=== PATIENT | male | born 1985 | race American Indian/Alaskan Native ===

== ENCOUNTER 2017-04-19 20:21 | Emergency (ER) | payer SELFPAY ==
[2017-04-19] MEDS ORDERED: DUONEB *Not for PRN Use IH ONE ×2 (20:42→20:55)
[2017-04-19] MEDS ORDERED: ATROVENT IH ONE ×2 (21:02→21:03)
[2017-04-19] MEDS ORDERED: PROVENTIL IH ONE ×2 (21:02)
--- NOTE | 2017-04-19 21:39 | XRay Report ---
FINAL REPORT PROCEDURE: XR CHEST ROUTINE 2V TECHNIQUE: PA and lateral chest radiographs were obtained. CPT 12875 HISTORY: sob wheezing COMPARISON: No prior studies are available for comparison. FINDINGS: Heart: Normal. Mediastinum/Vessels: Normal. Lungs/Pleural space: Lungs are clear and expanded. There are no infiltrates, effusions or pneumothoraces.. Bony thorax: No acute osseous abnormality. Other: IMPRESSION: Normal examination.
--- NOTE | 2017-04-19 21:49 | Emergency Department Report ---
ED Asthma HPI - General Chief Complaint: Adult Asthma Stated Complaint: JEMMA Time Seen by Provider: 04/19/17 21:22 Source: patient Mode of arrival: Ambulatory Limitations: No Limitations - History of Present Illness Initial Comments: This is a 32-year-old male nontoxic, well nourished in appearance, no acute signs of distress appears to the ED complaining of wheezing and "asthma attack" that occurred this morning around 0400. Patient stated when he woke up but his teeth he develop difficult to breathing and stated he took albuterol treatment at home with minimal relief. Patient denies any sick contact. Denies long car rides, which travels, or recent hospitalization. Patient denies any calf tenderness, calf pain, or calf swelling. Patient stated has been diagnosed with asthma since childhood and has been smoking cigarettes since the age of 17 and is currently smoking cigarettes about one pack every two days. Patient is complaining of wheezing. Patient denies any fever, hemoptysis, chills, stiff neck, headache, nausea, vomiting, chest pain or short of breath. Patient stated has these asthma attacks once yearly. Denies having a primary care doctor or follow-up for his asthma. Patient denies any allergies and past medical history besides asthma. MD Complaint: "asthma attack", shortness of breath, wheezing -: Gradual, This morning Asthma History: childhood onset Severity: moderate Context: none known Associated Symptoms: none. denies: productive cough, dry cough, fever, chest pain, hemoptysis, leg edema, syncope Treatments Prior to Arrival: inhaled bronchodilator - Related Data Current Asthma Therapy: none Previous Rx's Medication Instructions Recorded Last Taken Type ALBUTEROL Inhaler [ProAir HFA 2 puff IH QID PRN #1 inhalation 04/19/17 Unknown Rx Inhaler] Amoxicillin/K Clav Tab [Augmentin 1 tab PO Q12HR #20 tab 04/19/17 Unknown Rx 875 mg] predniSONE [Deltasone] 20 mg PO BID #10 tab 04/19/17 Unknown Rx Allergies Allergy/AdvReac Type Severity Reaction Status Date / Time No Known Allergies Allergy Unverified 04/19/17 20:47 ED Review of Systems ROS: Stated complaint: JEMMA Other details as noted in HPI Constitutional: denies: chills, fever Eyes: denies: eye pain, eye discharge, vision change ENT: denies: ear pain, throat pain Respiratory: denies: cough, shortness of breath, wheezing Cardiovascular: denies: chest pain, palpitations Endocrine: no symptoms reported Gastrointestinal: denies: abdominal pain, nausea, diarrhea Genitourinary: denies: urgency, dysuria Musculoskeletal: denies: back pain, joint swelling, arthralgia Skin: denies: rash, lesions Neurological: denies: headache, weakness, paresthesias Psychiatric: denies: anxiety, depression Hematological/Lymphatic: denies: easy bleeding, easy bruising ED Past Medical Hx - Past Medical History Previous Medical History?: Yes Hx Asthma: Yes - Social History Smoking Status: Current Every Day Smoker - Medications Home Medications: Home Medications Medication Instructions Recorded Confirmed Last Taken Type ALBUTEROL Inhaler [ProAir HFA 2 puff IH QID PRN #1 inhalation 04/19/17 Unknown Rx Inhaler] Amoxicillin/K Clav Tab [Augmentin 1 tab PO Q12HR #20 tab 04/19/17 Unknown Rx 875 mg] predniSONE [Deltasone] 20 mg PO BID #10 tab 04/19/17 Unknown Rx ED Physical Exam - General Limitations: No Limitations General appearance: alert, in no apparent distress - Head Head exam: Present: atraumatic, normocephalic, normal inspection - Eye Eye exam: Present: normal appearance, PERRL, EOMI. Absent: scleral icterus, conjunctival injection, nystagmus, periorbital swelling, periorbital tenderness Pupils: Present: normal accommodation - ENT ENT exam: Present: normal exam, normal orophraynx, mucous membranes moist, TM's normal bilaterally, normal external ear exam - Neck Neck exam: Present: normal inspection, full ROM. Absent: tenderness, meningismus, lymphadenopathy, thyromegaly - Respiratory Respiratory exam: Present: normal lung sounds bilaterally, wheezes (bilateral expiratory wheezing upper lower lobes bilaterally). Absent: respiratory distress, rales, rhonchi, stridor, chest wall tenderness, accessory muscle use, decreased breath sounds, prolonged expiratory - Cardiovascular Cardiovascular Exam: Present: regular rate, normal rhythm, normal heart sounds. Absent: bradycardia, tachycardia, irregular rhythm, systolic murmur, diastolic murmur, rubs, gallop - GI/Abdominal GI/Abdominal exam: Present: soft, normal bowel sounds. Absent: distended, tenderness, guarding, rebound, rigid, diminished bowel sounds - Rectal Rectal exam: Present: deferred - Extremities Exam Extremities exam: Present: normal inspection, full ROM, normal capillary refill. Absent: tenderness, pedal edema, joint swelling, calf tenderness - Back Exam Back exam: Present: normal inspection, full ROM. Absent: tenderness, CVA tenderness (R), CVA tenderness (L), muscle spasm, paraspinal tenderness, vertebral tenderness, rash noted - Neurological Exam Neurological exam: Present: alert, oriented X3, CN II-XII intact, normal gait, reflexes normal - Psychiatric Psychiatric exam: Present: normal affect, normal mood - Skin Skin exam: Present: warm, dry, intact, normal color. Absent: rash ED Course Vital Signs 04/19/17 04/19/17 04/19/17 20:49 21:06 21:55 Temperature 98.4 F Pulse Rate 83 Pulse Rate [ 99 H Bilateral Throughout] Respiratory 20 22 Rate Respiratory 26 H Rate [Bilateral Throughout] Blood Pressure 155/76 Blood Pressure [Right] O2 Sat by Pulse 95 93 Oximetry 04/19/17 04/19/17 04/19/17 22:08 22:34 22:41 Temperature Pulse Rate 85 Pulse Rate [ 103 H Bilateral Throughout] Respiratory 22 Rate Respiratory 21 Rate [Bilateral Throughout] Blood Pressure Blood Pressure 126/58 [Right] O2 Sat by Pulse 100 Oximetry - Reevaluation(s) Reevaluation #1: 04/19/17 21:51 Patient is able speak full sentences with no signs of distress noted. Reevaluation #2: 04/19/17 23:34 Patient is watching TV with no signs of distress. Patient is speaking in full sentences. Reevaluation #3: 04/19/17 23:36 Patient requesting to Leave AMA and not be admitted. Patient was educated and instructed of critical concerns about patient and stated he still wants to leave AMA. - Consultations Consultation #1: 04/19/17 23:35 Dr. Rivera is aware of patient and agrees to plan of care in the ED ED Medical Decision Making - Lab Data Result diagrams: 04/19/17 21:30 04/19/17 21:30 - EKG Data Interpretation: normal EKG - Medical Decision Making ED course; this is a 32-year-old male that presents with asthma exacerbation 1- patient was examined by myself. Patient received DuoNeb and Solu-Medrol IV in the ED. Patient stated feels much better with symptoms of difficulty breathing subsiding. Wheezing has significantly decreased. Patient is able to speak full sentences with no signs of distress. Patient received 2 L nasal cannula oxygen. Patient was was placed on a cardiac catheterization technologist. 2- CBC, BMP, ABG, and BNP has been obtained. X-ray has been obtained and dictated by radiologist and negative findings of any abnormalities. Patient was notified of x-ray findings with no further questions noted by patient. Normal EKG with normal sinus rhythm. CTA negative as per radiologist. 3- Dr. Rivera has been notified about patient and agrees to the plan of care. 4- I instructed patient of my decision to admit the patient for hypoxemia and asthma exacerbation. Patient stated he does not want to be admitted and wants to be left without medical advice. 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 5- I instructed patient to observe symptoms of shortness of breath, increased wheezing, chest pain, hemoptysis, headache, stiff neck, nausea or vomiting and if the symptoms are present return to emergency room as soon as possible. 6- patient was referred to a primary care doctor to follow in 24 hours and patient received albuterol inhaler, and prednisone at discharge. Patient also received Augmentin at the time of discharge due to elevated white cell count of 14. 7 Patient left AMA before UA results to r/o UTI. 8- Patient was also instructed that I would like to work patient up for DVT due to elevated d-dimmer and patient refused. 9- At time time of discharge, the patient does not seem toxic or ill in appearance. No acute signs of distress noted. Patient agrees to discharge treatment plan of care. No further questions noted by the patient. Critical care attestation.: If time is entered above; I have spent that time in minutes in the direct care of this critically ill patient, excluding procedure time. ED Disposition Clinical Impression: Asthma exacerbation, Hypoxemia Disposition: DC-07 LEFT AGAINST MED ADVICE Is pt being admited?: No Does the pt Need Aspirin: No Condition: Stable Instructions: Albuterol (By mouth), Prednisone (By mouth), Amoxicillin/ Clavulanate Potassium (By mouth), Asthma (ED) Additional Instructions: Follow-up with your primary-care doctor/referred primary care doctor in 24 hours and observe symptoms of shortness of breath, increased wheezing, chest pain, hemoptysis, headache, stiff neck, nausea or vomiting and if the symptoms are present return to emergency room as soon as possible. Take albuterol and prednisone as prescribed as well as Augmentin. Prescriptions: ALBUTEROL Inhaler [ProAir HFA Inhaler] 2 puff IH QID PRN #1 inhalation PRN Reason: Shortness Of Breath Amoxicillin/K Clav Tab [Augmentin 875 mg] 1 tab PO Q12HR #20 tab predniSONE [Deltasone] 20 mg PO BID #10 tab Referrals: PRIMARY CARE, [Primary Care Provider] - 24 Hours LEIDY ECHAVARRIA MD [Staff Physician] - 3-5 Days [facility] [Outside] - 3-5 Days [facility] [Outside] - 3-5 Days Forms: AMA Form
[2017-04-19 21:51] LABS: Basophils % (Auto) 0.3 % (0.0-1.8); Eosinophils % (Auto) 2.9 % (0.0-4.3); Hematocrit 41.4 % (35.5-45.6); Mean Corpuscular HGB Conc 31 % (32-34); Mean Corpuscular Hemoglobin 25 pg (28-32); Mean Corpuscular Volume 78 fl (84-94); Platelet Count 274 K/mm3 (140-440); Red Blood Count 5.32 M/mm3 (3.65-5.03); Red Cell Distribution Width 15.6 % (13.2-15.2); White Blood Count 14.1 K/mm3 (4.5-11.0)
[2017-04-19 22:05] LABS: Anion Gap 19 mmol/L; Blood Urea Nitrogen 8 mg/dL (9-20); Calcium 9.3 mg/dL (8.4-10.2); Carbon Dioxide 25 mmol/L (22-30); Chloride 99.6 mmol/L (98-107); Glucose 111 mg/dL (75-100); Potassium 3.6 mmol/L (3.6-5.0); Sodium 140 mmol/L (137-145)
[2017-04-19 22:06] LABS: ISTAT Base Excess 1; ISTAT HCO3 24.5; ISTAT PCO2 33.3 (35-45); ISTAT PH 7.475 (7.35-7.45); ISTAT PO2 61 (80-105); ISTAT SO2 93; ISTAT TCO2 26
[2017-04-19] MEDS ORDERED: MAGNESIUM SULFATE 2GM/50ML 2 GM/50 ML BAG IV ONE (22:11)
[2017-04-19] MEDS ORDERED: NACL ONE (22:42)
--- NOTE | 2017-04-19 23:04 | Cat Scan Report ---
FINAL REPORT PROCEDURE: CT ANGIO CHEST TECHNIQUE: Computerized tomographic angiography of the chest was performed after the IV injection of iodinated nonionic contrast including image processing. The image data was postprocessed using 2-dimensional multiplanar reformatted (MPR) and 3-dimensional (MIP and/or volume rendered) techniques. HISTORY: sob COMPARISON: No prior studies are available for comparison. FINDINGS: Heart and pericardium: Normal. Thoracic aorta: There is no thoracic aortic aneurysm or dissection.. Pulmonary vasculature: There is no pulmonary embolism. There is suboptimal opacification of the distal pulmonary artery branches.. Lymph nodes: No enlarged thoracic lymph nodes. Lungs: Lungs are clear. There are no infiltrates, effusions or pneumothoraces.. Pleural space: No effusion, thickening, or pneumothorax. Musculoskeletal structures: No significant abnormality. Upper abdominal structures: No significant abnormality. IMPRESSION: No pulmonary embolism is identified. There is no thoracic aortic aneurysm or dissection. There is no acute lung disease.
[2017-04-20 00:49] LABS: Bilirubin,Urine NEG (Negative); Blood,Urine NEG (Negative); Ketones,Urine NEG (Negative); Leukocyte Esterase,Urine MOD (Negative); Mucus,Urine 3+ /HPF; Nitrite,Urine NEG (Negative); Protein,Urine <15 mg/dL mg/dL (Negative); Urobilinogen,Urine < 2.0 mg/dL (<2.0)
[2017-04-20 01:29] VITALS: BP 144/66
== END 2017-04-20 01:29 | disposition left against medical advice (07) ==
LOC: ED 20:21
DX: J45.901 Unspecified asthma with (acute) exacerbation (principal); R09.02 Hypoxemia; F17.200 Nicotine dependence, unspecified, uncomplicated
CPT/HCPCS: 36415; 71020; 71275; 80048; 81001; 82803; 83880; 85025; 85379; 93005; 93010; 94640; 96365; 96375; 99285; J2930; J3475; Q9967

== ENCOUNTER 2018-10-04 09:14 | Emergency (ER) | payer SELFPAY ==
--- NOTE | 2018-10-04 10:40 | Emergency Department Report ---
ED General Adult HPI - General Chief complaint: Allergic Reaction Stated complaint: ALLERGIC REACTION Time Seen by Provider: 10/04/18 10:28 Source: patient Mode of arrival: Ambulatory Limitations: No Limitations - History of Present Illness Initial comments: Patient is 33 years old male with no significant past medical history. Patient presented to the ER complaining of generalized rash, itchy. Patient stated that rashes started one year ago comes and goes. Patient denied any fever, nausea or vomiting. Patient denied any other symptoms. - Related Data Previous Rx's Medication Instructions Recorded Last Taken Type ALBUTEROL Inhaler (OR & NICU) 2 puff IH QID PRN #1 inhalation 04/19/17 Unknown R x [ProAir HFA Inhaler] Amoxicillin/K Clav Tab [Augmentin 1 tab PO Q12HR #20 tab 04/19/17 Unknown Rx 875 mg] predniSONE [Deltasone] 20 mg PO BID #10 tab 04/19/17 Unknown Rx Cetirizine HCl [ZyrTEC] 10 mg PO DAILY #30 tab.rapdis 10/04/18 Unknown Rx Prednisone [predniSONE 10 mg 10 mg PO .TAPER #1 tab.ds.pk 10/04/18 Unknown Rx (6-Day Pack, 21 Tabs)] Allergies Allergy/AdvReac Type Severity Reaction Status Date / Time No Known Allergies Allergy Unverified 04/19/17 20:47 ED Review of Systems ROS: Stated complaint: ALLERGIC REACTION Other details as noted in HPI Comment: All other systems reviewed and negative Constitutional: denies: chills, fever Respiratory: denies: cough, orthopnea, shortness of breath, SOB with exertion Cardiovascular: denies: chest pain, palpitations Gastrointestinal: denies: abdominal pain, nausea, vomiting Skin: rash, lesions Neurological: denies: headache, weakness ED Past Medical Hx - Past Medical History Hx Asthma: Yes - Surgical History Past Surgical History?: No - Social History Smoking Status: Former Smoker Substance Use Type: None - Medications Home Medications: Home Medications Medication Instructions Recorded Confirmed Last Taken Type ALBUTEROL Inhaler (OR & NICU) 2 puff IH QID PRN #1 inhalation 04/19/17 Unknown Rx [ProAir HFA Inhaler] Amoxicillin/K Clav Tab [Augmentin 1 tab PO Q12HR #20 tab 04/19/17 Unknown Rx 875 mg] predniSONE [Deltasone] 20 mg PO BID #10 tab 04/19/17 Unknown Rx Cetirizine HCl [ZyrTEC] 10 mg PO DAILY #30 tab.rapdis 10/04/18 Unknown Rx Prednisone [predniSONE 10 mg 10 mg PO .TAPER #1 tab.ds.pk 10/04/18 Unknown Rx (6-Day Pack, 21 Tabs)] ED Physical Exam - General Limitations: No Limitations General appearance: alert, in no apparent distress - Head Head exam: Present: atraumatic, normocephalic, normal inspection - Eye Eye exam: Present: normal appearance - ENT ENT exam: Present: normal exam, normal orophraynx, mucous membranes moist - Neck Neck exam: Present: normal inspection, full ROM. Absent: tenderness, meningismus, lymphadenopathy - Respiratory Respiratory exam: Present: normal lung sounds bilaterally - Cardiovascular Cardiovascular Exam: Present: regular rate, normal rhythm, normal heart sounds - GI/Abdominal GI/Abdominal exam: Present: soft. Absent: distended, tenderness, guarding, rebound - Extremities Exam Extremities exam: Present: normal inspection, full ROM, normal capillary refill - Back Exam Back exam: Present: normal inspection, full ROM. Absent: CVA tenderness (R), CVA tenderness (L), muscle spasm - Neurological Exam Neurological exam: Present: alert, oriented X3, CN II-XII intact, normal gait, reflexes normal - Skin Skin exam: Present: intact, rash, urticaria ED Course Vital Signs 10/04/18 09:20 Temperature 98.6 F Pulse Rate 96 H Respiratory 18 Rate Blood Pressure 162/82 O2 Sat by Pulse 99 Oximetry Critical care attestation.: If time is entered above; I have spent that time in minutes in the direct care of this critically ill patient, excluding procedure time. ED Disposition Clinical Impression: Contact dermatitis Disposition: DC-01 TO HOME OR SELFCARE Is pt being admited?: No Condition: Stable Instructions: Contact Dermatitis (ED) Prescriptions: Cetirizine HCl [ZyrTEC] 10 mg PO DAILY #30 tab.rapdis Prednisone [predniSONE 10 mg (6-Day Pack, 21 Tabs)] 10 mg PO .TAPER #1 tab.ds.pk Referrals: [facility] [Provider Group] - 3-5 Days
== END 2018-10-04 10:49 | disposition home or self-care (01) ==
LOC: ED 09:14
CPT/HCPCS: 99281